=== PATIENT | female | born 1990 | race Caucasian/White ===

== ENCOUNTER 2018-08-25 11:46 | Emergency (ER) | payer MEDICAID ==
[~2018-08-25] VITALS: Ht 170.2 cm; Wt 77.3 kg
[~2018-08-25 11:46] MED LIST: IMPLANON68 MG ID; IRON50 MG PO; MACROBID 1100 MG/CAP PO; NO HOME MEDICATIONS; NORCO 325 MG-51 TAB PO; ORTHO TRI-CYCLE1 TA2 PO; PRENATAL1 TA1 PO; ZOFRAN 4MG T4 MG/TAB PO
[2018-08-25 11:59] VITALS: TEMP 98.3
[2018-08-25] MEDS ORDERED: LIDODERM 5% PATC1 EA TP (13:59)
[2018-08-25] MEDS ORDERED: PERCOCET 325 MG1 TA2 PO (13:59)
[2018-08-25] MEDS ORDERED: NORFLEX 10100 MG/TAB PO (13:59)
[2018-08-25 14:48] VITALS: BP 126/76; PULSE 68
== END 2018-08-25 14:52 | disposition home or self-care (01) ==
LOC: COL.ER 11:46
DX: S39.012A Strain of muscle, fascia and tendon of lower back, initial encounter (principal); M54.17 Radiculopathy, lumbosacral region; K50.90 Crohn's disease, unspecified, without complications; Z88.6 Allergy status to analgesic agent; X58.XXXA Exposure to other specified factors, initial encounter
CPT/HCPCS: J2270

== ENCOUNTER 2018-10-18 10:44 | Outpatient (RCR) | payer MEDICAID ==
[~2018-10-18 10:44] MED LIST changes: +LIDODERM 5% PATC1 EA TP; +NORFLEX 10100 MG/TAB PO; +PERCOCET 325 MG1 TA2 PO
[2018-10-24] MEDS ORDERED: PEN-VEE K500 MG PO (17:15)
[2018-10-24] MEDS ORDERED: ZOFRAN ODT4 MG PO (17:31)
[2018-10-24] MEDS ORDERED: NORCO 325 MG-51 TAB PO (17:31)
[2018-10-24] MEDS ORDERED: CEPHALEXIN500 M1 PO (17:31)
[2018-10-25] MEDS ORDERED: NORCO 325 MG-7.1 TAB PO (15:05)
[2018-10-25] MEDS ORDERED: AMOXICILLIN 8751 TAB PO (15:05)
== END 2018-11-28 13:29 | disposition home or self-care (01) ==
LOC: WSC 10:44
DX: M48.061 Spinal stenosis, lumbar region without neurogenic claudication (principal); M54.16 Radiculopathy, lumbar region

== ENCOUNTER 2018-10-24 16:46 | Emergency (ER) | payer MEDICAID ==
[~2018-10-24] VITALS: Ht 172.7 cm; Wt 75.0 kg
[2018-10-24 16:54] VITALS: BP 121/85; TEMP 98
[2018-10-24] MEDS ORDERED: PEN-VEE K500 MG PO (17:15)
[2018-10-24] MEDS ORDERED: NORCO 325 MG-51 TAB PO (17:31)
[2018-10-24] MEDS ORDERED: ZOFRAN ODT4 MG PO (17:31)
[2018-10-24] MEDS ORDERED: CEPHALEXIN500 M1 PO (17:31)
[2018-10-24 18:22] VITALS: PULSE 84
[2018-10-25] MEDS ORDERED: AMOXICILLIN 8751 TAB PO (15:05)
[2018-10-25] MEDS ORDERED: NORCO 325 MG-7.1 TAB PO (15:05)
== END 2018-10-24 18:23 | disposition home or self-care (01) ==
LOC: COL.ER 16:46
DX: K02.9 Dental caries, unspecified (principal); K50.90 Crohn's disease, unspecified, without complications

== ENCOUNTER 2018-10-25 11:22 | Emergency (ER) | payer MEDICAID ==
[~2018-10-25] VITALS: Ht 172.7 cm; Wt 75.0 kg
[~2018-10-25 11:22] MED LIST changes: +CEPHALEXIN500 M1 PO; +PEN-VEE K500 MG PO; +ZOFRAN ODT4 MG PO
[2018-10-25 12:41] LABS: ALBUMIN 4.5 gm/dL (3.5-5.0); BILIRUBIN,TOTAL 0.8 mg/dL (0.0-1.0); C-REACTIVE PROTEIN 3.4 mg/dL (0.0-0.9); CREATININE, serum 0.7 (0.52-1.25); POTASSIUM 3.3 mmol/L (3.4-5.0); TOTAL PROTEIN 7.8 gm/dL (6.4-8.2)
[2018-10-25 12:46] LABS: BASO # 0.1 (0.0-0.2); BASO % 0.7 % (0.0-2.0); EOS # 0.1 (0.0-0.7); EOS % 1.1 % (0-4.0); GRAN # 7.8 (1.4-6.5); GRAN % 73.5 % (42.2-75.2); HEMATOCRIT 39.7 % (37.0-47.0); HEMOGLOBIN 12.9 g/dl (12.5-16.0); LYMPH # 1.9 (1.2-3.4); LYMPH % 17.9 % (20.0-51.0); MEAN CELL VOLUME 88 fl (80.0-100.0); MEAN CORPUSCULAR HEMOGLOBIN 29 pg (27.0-31.0); MEAN CORPUSCULAR HGB CONC 33 g/dl (33.0-37.0); MEAN PLATELET VOLUME 9.1 fl (7.4-10.4); MONO # 0.6 (0.1-0.6); MONO % 5.9 % (1.7-9.3); PLATELET COUNT 307 K/mm3 (130-400); RED BLOOD COUNT 4.49 M/mm3 (4.10-5.30)
[2018-10-25] MEDS ORDERED: NORCO 325 MG-7.1 TAB PO (15:05)
[2018-10-25] MEDS ORDERED: AMOXICILLIN 8751 TAB PO (15:05)
[2018-10-25 16:48] VITALS: BP 124/78; PULSE 79; TEMP 98.4
== END 2018-10-25 16:45 | disposition home or self-care (01) ==
LOC: COL.ER 11:22
PROVIDERS: Physician Assistant
DX: T81.82XA Emphysema (subcutaneous) resulting from a procedure, initial encounter (principal); R68.84 Jaw pain; M79.89 Other specified soft tissue disorders; K50.90 Crohn's disease, unspecified, without complications; Z88.5 Allergy status to narcotic agent; Z98.818 Other dental procedure status
CPT/HCPCS: J1100; J1170; J2270; J2405; J2550; J7030; Q9967